=== PATIENT | female | born 1995 | race Caucasian/White ===

== ENCOUNTER 2017-01-18 14:37 | Emergency (ER) | payer OTHER ==
[2017-01-18 15:04] LABS: Hematocrit 38.9 % (37.0-47.0); Mean Cell Volume 94.9 fl (78-100); Mean Corpuscular Hemoglobin 31.7 pg (27-31); Mean Corpuscular Hgb Conc 33.4 g/dl (32-36); Neutrophil # 5.7 K/mm3 (1.3-6.0); Platelet Count 226 K/mm3 (150-450); White Blood Count 7.8 K/mm3 (4.0-10.5)
[2017-01-18 15:11] LABS: Urine Appearance Slightly Cloudy; Urine Color Yellow
[2017-01-18 15:14] LABS: Urine Bilirubin Negative (NEGATIVE); Urine Blood 10 /ul (NEGATIVE); Urine Ketone Negative (NEGATIVE); Urine Nitrite Negative (NEGATIVE); Urine Protein 30 mg/dL (NEGATIVE); Urine Specific Gravity 1.025 SP.GR. (1.005-1.010); Urine Urobilinogen Normal (NORMAL); Urine pH 6.5 pH (5.0-7.0)
[2017-01-18 15:15] LABS: Urine Bacteria 1+; Urine RBC 0-5 /hpf (0-5)
[2017-01-18 15:16] LABS: Albumin * 4.4 gm/dl (3.4-5.0); Anion Gap 12.9 mmol/L (6.8-13.8); BUN/Creatinine Ratio 10.4 (9.0-21.6); Bilirubin, Total 0.4 mg/dL (0.0-1.1); Ca. Corrected For Albumin 8.4 mg/dL (8.4-10.2); Carbon Dioxide 29.3 mmol/L (24-32.6); Potassium 4.2 mmol/L (3.4-4.6)
--- NOTE | 2017-01-18 15:42 | ERNOTE ---
Abdominal HPI - General Chief Complaint: Abdominal Pain - Immun/Allergies/Home Medications Immunizatons: IMMUNIZATION HX Immunizations Up to Date Yes History of Influenza Vaccine No Hx Pneumococcal Vaccination No Allergies/Adverse Reactions: Allergies No Known Allergies Allergy (Verified 01/18/17 14:47) Home Medications: HOME MEDICATIONS Ciprofloxacin HCl [Cipro] 500 mg PO BID #14 tablet 01/18/17 [Last Taken Unknown] Etonogestrel [Nexplanon] 68 mg SQ DAILY 01/18/17 [Last Taken Unknown] - Patient's Past Medical History Patient History - Medical: No pertinent hx Patient History - Cardiac/Respiratory: No pertinent hx Patient History - Cancer: No Hx of Cancer Patient History - Surgical Procedures: Other Patient History - Other: None LMP (females 10-50): 3 weeks - Family History Mother Family History - Medical: Other Family History - Cardiac/Respiratory: Hypertension Father Family History - Medical: Diabetes Type 2 - Social History Living Situations: home Abuse History: No History of abuse Psych History: No pertinent hx Alcohol Use: rarely Drug Use: none - Immunizations Immunizations Up to Date: Yes Hx Pneumococcal Vaccination: No History of Influenza Vaccine: No Physical Exam - Physical Exam General Appearance: Present: wd/wn, alert, mild distress Respiratory: Present: no respiratory distress, normal breath sounds, lungs clear Cardiovascular/Chest: Present: regular rate, rhythm Gastrointestinal/Abdominal: Present: normal bowel sounds, tenderness - mild LLQ , L mid abd Back Exam: Present: normal inspection, no CVA tenderness - mild left Extremity Exam: Present: normal inspection Neurological Exam: Present: alert, normal mood/affect Skin Exam: Present: normal color ED Progress - Results and Orders Patient's Lab Results:: I have reviewed the patient's lab results. - Vital Signs Patient's Vital Signs:: I have reviewed the patient's vital signs. Vital Signs: Vital Signs 01/18/17 14:43 Temperature 36.5 C Pulse Rate 85 Respiratory 16 Rate Blood Pressure 115/64 O2 Sat by Pulse 100 Oximetry - Progress/Reassessment Chief Complaint: Abdominal Pain Plan - Plan Plan: Home. Cipro. F/U prn. Consider US if symptoms persist but clearly has UTI, treat first and f/u. Departure - Departure Clinical Impression: Pyelonephritis Disposition: Home self-care Condition: Good Instructions: Pyelonephritis, Adult Additional Instructions: Finish your antibiotics. Drink water regularly. Referrals: Any Becerra MD [Primary Care Provider] - Prescriptions: Ciprofloxacin HCl [Cipro] 500 mg PO BID #14 tablet
[2017-01-18 15:47] VITALS: BP 113/53
--- OUTSIDE RECORDS SUMMARY | 2017-01-18 15:47 | XMS REPORT | Continuity of Care Document ---
:1995 Author Organization [facility] ([facility]) Address [address] [place] [address] Phone [phone] Care Team Providers Name Role Phone Any Becerra Primary Care Provider [phone] Source Comments This disclosure is being made pursuant to the Care Everywhere program, applicable federal and state laws, and may not contain all informaitonavailable regarding this patient.[facility] ([facility]) Active Allergies and Adverse Reactions No Known Allergies Current Medications Prescription Sig. Disp. Refills Start Date End Date Status naproxen PO Active chlorhexidine 0.12 % oral RINSE WITH 15 ML 0 12/04/2016 Active rinse FOR 30 SECONDS BID Active Problems Problem Noted Date History of syncope: Often gets lightheaded after vaccines. 10/02/[address] 10/02/2016 Most Recent Encounters Date Type Specialty Providers Description 12/20/2016 Telephone Gynecology Beckie Hernandez MD Chief Comp: Patient Concern 12/12/2016 Office Visit Gynecology Beckie Hernandez MD Dx: Routine screening for STI (sexually transmitted infection) (Primary Dx) 12/12/2016 Office Visit Gynecology Default, Other Billg - Subj: Upcoming Appt Defo Reminder Ingrid Dior MD 12/10/2016 Office Visit Gynecology Default, Other Billg - Chief Comp: Patient Defo Reported Reason For Visit 12/03/2016 Office Visit Gynecology Default, Other Billg - Chief Comp: Patient Defo Reported Reason For Visit 11/09/2016 Telephone Gynecology Montse Tristna Chief Comp: Contraception YARD SPOTTER Immunizations Name Dates Previously Given Next Due HPV, 9 valent (Gardasil 9) 12/12/2016,10/02/2016 Social History Tobacco Use Types Packs/Day Years Used Date Never Smoker Smokeless Tobacco: Never Used Alcohol Use Drinks/Week oz/Week Comments No Last Filed Vital Signs Vital Sign Reading Time Taken Blood Pressure 118/76 12/12/2016 3:19 PM CDT Pulse 92 12/12/2016 3:19 PM CDT Temperature 37 C (98.6 F) 12/12/2016 3:19 PM CDT Respiratory Rate - - Height 1.67 m (5' 5.75") 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 Weight 59.8 kg (131 lb 13.4 oz) 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 Body Mass Index 21.44 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 Oxygen Saturation - - Plan of Care Date Type Specialty Providers Description 04/01/2017 Appointment Gynecology Default, Other Billg - Chief Comp: Patient Defo Reported Reason For Visit [address] [place] [address] [phone] (Fax) Health Maintenance Due Date Last Done Comments Hepatitis B Vaccine (1 of 3 - Primary 1995 Series) Tdap Vaccine 2008 Meningococcal Vaccine (1 of 1) 2013 Lipid Disorder Screening 12/03/2015 MMR Vaccine 12/03/2015 Td Vaccine 12/03/2015 Varicella Vaccine (1 of 2 - Adult - No 12/03/2015 Evidence of Immunity) Influenza Vaccine: Seasonal (Season Ended) 2017 HPV Vaccine (3 of 3 - Female 3 Dose 04/13/2017 12/12/2016, 10/02/2016 Series) Results from Last 3 Months NEISSERIA GONORRHOEAE PCR (12/12/2016 3:31 PM) Component Value Range Gonorrhea PCR Negative Negative Specimen Other - Urine, Other: Narrative Test methodology:PCR amplification; CT/NG Assay ([employer]) CHLAMYDIA TRACHOMATIS DETECTION BY PCR (12/12/2016 3:31 PM) Component Value Range Chlamydia Trach PCR Negative Negative Specimen Other - Urine, Other: Narrative Test methodology:PCR amplification; CT/NG Assay ([employer]) [place]ET [place], POINT OF CARE (12/12/2016) Component Value Range POC MYCELIAL YEAST Absent Absent, Not Done, 3.0, 3.5, 4.0, 4.5, 5.0, 5.5 POC CLUE CELL Absent Absent, Not Done, 3.0, 3.5, 4.0, 4.5, 5.0, 5.5 POC WHIFF Negative Negative POC TRICHOMONAS Absent Absent, Not Done, 3.0, 3.5, 4.0, 4.5, 5.0, 5.5 POC PH 4.5 POC [place] WBCS Normal POC [place] BUDS Absent POC [place]ET [place] RODS Normal POC [place] RBC Absent POC [place] ARTIFACT Absent
== END 2017-01-18 15:47 | disposition home or self-care (01) ==
LOC: ER 14:37
DX: N12 Tubulo-interstitial nephritis, not specified as acute or chronic (principal)